=== PATIENT | male | born 1980 | race Caucasian/White ===

== ENCOUNTER 2016-08-24 15:36 | Emergency (ER) | payer BC ==
[~2016-08-24] VITALS: Ht 165.1 cm; Wt 65.5 kg
[~2016-08-24 15:36] MED LIST: AMO500 PO; IBUP-1542 PO; NO MEDS
[2016-08-24 15:40] VITALS: Ht 165.1 cm; Wt 65.5 kg
[2016-08-24] MEDS ORDERED: morphine 4 MG/ML VIAL IV STA (17:43)
[2016-08-24] MEDS ORDERED: ONDANSETRON 4 MG INJ IV STA (17:43)
--- NOTE | 2016-08-24 18:13 | RADRPT ---
PROCEDURE: Abdominal Ultrasound (right upper quadrant). CLINICAL INDICATION: Abdominal pain TECHNIQUE: Multiple real-time longitudinal and transverse images of the right upper quadrant of th e abdomen were acquired utilizing a curved array transducer. Images were reviewed on a high-resoluti on PACS workstation. COMPARISON: None FINDINGS: The liver demonstrates increased echogenicity consistent with fatty infiltration. The liver is mild ly enlarged. No focal masses are identified. There is no evidence of intra or extrahepatic ductal dilatation. The common bile duct measures 2.3 mm in diameter. No gallstones or gallbladder wall thi ckening is seen. The visualized portions of the pancreas are unremarkable with obscuration of the tail of the pancrea s. No free fluid is identified. There is no evidence of right hydronephrosis or renal calcification. The right kidney measures 10.2 cm in length. The visualized portions of the aorta and inferior vena cava are within normal limits. IMPRESSION: 1. Enlarged, fatty liver. 2. Otherwise unremarkable right upper quadrant ultrasound. RPTAT: KK .Cal Ramos MD, Date Time Electronically viewed and signed by .Cal Ramos MD, MD on 08/24/2016 18:13 .B/
[2016-08-24] MEDS ORDERED: SOD CHLORIDE 0.9% 1,000 ML IV ONE (18:16)
[2016-08-24 19:06] LABS: ADD SCAN DIFF NO
[2016-08-24 19:13] LABS: BASOPHIL # 0.1 10^3/ul (0.0-0.1); BASOPHILS % 0.5 % (0.0-2.0); EOSINOPHILS # 0.3 10^3/ul (0.0-0.5); EOSINOPHILS % 2.4 % (0.0-7.0); HEMATOCRIT 43.9 % (42.0-52.0); HEMOGLOBIN 15.3 g/dl (14.0-18.0); LYMPHOCYTES # 3.9 10^3/ul (0.8-2.9); LYMPHOCYTES % 32.8 % (15.0-51.0); MEAN CORPUSCULAR HEMOGLOBIN 30.6 pg (29.0-33.0); MEAN CORPUSCULAR HGB CONC 34.9 g/dl (32.0-37.0); MEAN CORPUSCULAR VOLUME 87.8 fl (82.0-101.0); MONOCYTE # 1.1 10^3/ul (0.3-0.9); NEUTROPHIL # 6.5 10^3/ul (1.6-7.5); PLATELET COUNT 294 10^3/UL (140-415); RED CELL DISTRIBUTION WIDTH 12.8 % (11.5-14.5); WHITE BLOOD COUNT 11.7 10^3/ul (4.8-10.8)
[2016-08-24 19:31] LABS: POTASSIUM 3.9 mmol/L (3.5-5.1)
[2016-08-24 19:33] LABS: ALBUMIN/GLOBULIN RATIO 1.25; BILIRUBIN,INDIRECT 0.1 mg/dl (0-1.1); BILIRUBIN,TOTAL 0.1 mg/dl (0.2-1.3); CALCIUM 8.9 mg/dl (8.4-10.2); CREATININE 0.73 mg/dl (0.61-1.24); TOTAL PROTEIN 7.2 g/dl (6.1-8.1)
[2016-08-24 19:43] LABS: ADD UMIC NO; URINE BILIRUBIN (Dip) NEGATIVE (NEGATIVE); URINE BLOOD (Dip) NEGATIVE (NEGATIVE); URINE COLOR LT. YELLOW (YELLOW); URINE GLUCOSE (Dip) NEGATIVE (NEGATIVE); URINE KETONES (Dip) NEGATIVE (NEGATIVE); URINE LEUKOCYTE ESTERASE (Dip) NEGATIVE (NEGATIVE); URINE NITRITE (Dip) NEGATIVE (NEGATIVE); URINE TOTAL PROTEIN (Dip) NEGATIVE (NEGATIVE); URINE UROBILINOGEN (Dip) 0.2 E.U./dL (0.1-1.0)
[2016-08-24] MEDS ORDERED: ACET1TAB40 PO (20:07)
[2016-08-24] MEDS ORDERED: BISM262O23 PO (20:07)
[2016-08-24] MEDS ORDERED: ONDA8TAB14 PO (20:07)
--- NOTE | 2016-08-24 20:09 | ERD ---
ER Documentation Chief Complaint Date/Time DATE: 08/24/16 TIME: 20:07 Chief Complaint ABDOMINAL PAIN,DIARRHEA X 4 DAYS HPI This 36-year-old male complains of vomiting diarrhea and epigastric pain for last 4 days. He may have some mild right upper quadrant abdominal pain. He has no measured fevers in the vomit is nonbilious nonbloody there is no blood or mucus in the diarrhea. ROS All systems reviewed and are negative except as per history of present illness. Medications Home Meds Active Scripts Bismuth Subsalicylate* (Pepto-Bismol*) 262 Mg/15 Ml Oral.susp, 15 ML PO Q3H Y for DIARRHEA for 5 Days, ML Prov:ONELIA WOLF MD 08/24/16 Ondansetron (Ondansetron Odt) 8 Mg Tab.rapdis, 8 MG PO Q6H Y for NAUSEA AND/OR VOMITING, #8 TAB Prov:ONELIA WOLF MD 08/24/16 Acetaminophen with Codeine (Acetaminophen-Cod #3 Tablet) 1 Each Tablet, 1 TAB PO Q6H Y for PAIN, #10 TAB Prov:ONELIA WOLF MD 08/24/16 Ibuprofen* (Motrin*) 600 Mg Tab, 600 MG PO Q6H Y for PAIN AND OR ELEVATED TEMP, #30 TAB Prov:HARRY FLORES NP 11/09/15 Amoxicillin* (Amoxicillin*) 500 Mg Cap, 500 MG PO TID for 10 Days, CAP Prov:HARRY FLORES NP 11/09/15 Reported Medications [No Meds] No Conflict Check 03/28/13 Allergies Allergies: Coded Allergies: No Known Drug Allergy (Verified Allergy, Mild, 08/24/16) PMhx/Soc History of Surgery: Yes (appendectomy) Anesthesia Reaction: No Hx Neurological Disorder: No Hx Respiratory Disorders: Yes (Asthma) Hx Cardiac Disorders: No Hx Psychiatric Problems: No Hx Miscellaneous Medical Probl: Yes (Dyslipidemia) Hx Alcohol Use: Yes (OCASSIONAL) Hx Substance Use: No Hx Tobacco Use: No Smoking Status: Never smoker Physical Exam Vitals Vital Signs Date Time Temp Pulse Resp B/P Pulse Ox O2 Delivery O2 Flow Rate FiO2 08/24/16 15:40 97.3 81 18 104/68 98 Physical Exam Const: [] Alert, no apparent distress. Head: Atraumatic Eyes: Normal Conjunctiva ENT: Normal External Ears, Nose and Mouth. Neck: Full range of motion..~ No meningismus. Resp: Clear to auscultation bilaterally Cardio: Regular rate and rhythm, no murmurs Abd: Soft, mild epigastric tenderness. No rebound. Mild right upper quadrant tenderness. No tenderness at McBurney's point. non distended. Normal bowel sounds Skin: No petechiae or rashes Back: No midline or flank tenderness Ext: No cyanosis, or edema Neur: Awake and alert Psych: Normal Mood and Affect Result Diagram: 08/24/16182908/24/161829 Results 24 hrs Laboratory Tests Test 08/24/16 18:30 08/24/16 19:02 White Blood Count 11.710^3/ul Red Blood Count 5.0010^6/ul Hemoglobin 15.3g/dl Hematocrit 43.9% Mean Corpuscular Volume 87.8fl Mean Corpuscular Hemoglobin 30.6pg Mean Corpuscular Hemoglobin Concent 34.9g/dl Red Cell Distribution Width 12.8% Platelet Count 91439^3/UL Mean Platelet Volume 11.0fl Neutrophils % 55.0% Lymphocytes % 32.8% Monocytes % 9.0% Eosinophils % 2.4% Basophils % 0.5% Nucleated Red Blood Cells % 0.0/100WBC Neutrophils # 6.510^3/ul Lymphocytes # 3.910^3/ul Monocytes # 1.110^3/ul Eosinophils # 0.310^3/ul Basophils # 0.110^3/ul Nucleated Red Blood Cells # 0.010^3/ul Sodium Level 147mmol/L Potassium Level 3.9mmol/L Chloride Level 108mmol/L Carbon Dioxide Level 26mmol/L Anion Gap 17 Blood Urea Nitrogen 14mg/dl Creatinine 0.73mg/dl Glucose Level 99mg/dl Calcium Level 8.9mg/dl Total Bilirubin 0.1mg/dl Direct Bilirubin 0.00mg/dl Indirect Bilirubin 0.1mg/dl Aspartate Amino Transf (AST/SGOT) 25IU/L Alanine Aminotransferase (ALT/SGPT) 34IU/L Alkaline Phosphatase 84IU/L Total Protein 7.2g/dl Albumin 4.0g/dl Globulin 3.20g/dl Albumin/Globulin Ratio 1.25 Lipase 82U/L Urine Color LT. YELLOW Urine Clarity CLEAR Urine pH 6.0 Urine Specific [place] 1.010 Urine Ketones NEGATIVE Urine Nitrite NEGATIVE Urine Bilirubin NEGATIVE Urine Urobilinogen 0.2 E.U./dL Urine Leukocyte Esterase NEGATIVE Urine Hemoglobin NEGATIVE Urine Glucose NEGATIVE% Urine Total Protein NEGATIVE Current Medications Medications (Trade) Dose Ordered Sig/Glenn Route PRN Reason Start Time Stop Time Status Last Admin Dose Admin Morphine Sulfate (morphine) 4 mg ONCE STAT IV 08/24/16 17:43 08/24/16 17:44 DC 08/24/16 18:30 Ondansetron HCl 4 mg 4 mg ONCE STAT IV 08/24/16 17:43 08/24/16 17:44 DC 08/24/16 18:30 Sodium Chloride (NS) 1,000 ml @ 0 mls/hr Q0M ONCE IV 08/24/16 18:16 08/24/16 18:17 DC 08/24/16 18:29 Procedures/MDM CBC shows a white blood cell 11.7. CMP shows no acute abnormalities. Lipase is normal. Urine is negative for infection, blood, glucose. Right upper quadrant ultrasound shows fatty liver but no additional acute abnormalities. Patient was given morphine 4 mg IV and Zofran form of grams IV and patient had improved pain and no rebound, only mild residual epigastric tenderness. Patient has signs and symptoms of vomiting diarrhea and epigastric pain, likely gastroenteritis. Signs or symptoms not consistent with hepatobiliary disease, appendicitis, pancreatitis, acute abdomen, obstruction. Treated with Tylenol No. 3, Zofran and Pepto-Bismol at home and further observation. The patient was stable with no new complaints during the ER course. Clinically, there is no current evidence to suggest meningitis, sepsis, acute abdomen, pneumonia, acute coronary syndrome, pulmonary embolism, or any other emergent condition appearing to require further evaluation or hospitalization. The patient should certainly return for any new or worsening symptoms per the aftercare instructions. They should otherwise follow-up with her primary care doctor for reevaluation this week. Departure Diagnosis: Primary Impression: Abdominal pain Abdominal location: epigastric Qualified Code: R10.13 - Epigastric pain Condition: Stable Patient Instructions: Abdominal Pain, Diarrhea, Viral (Child) (Adult), Vomiting (6Y-Adult) Additional Instructions: Examines normal hoy. Cheque otro vez con vazquez doctor primario en el proximo gates or regresa para mas o nueva simptomas. probablamente un virus que dura 2-4 gates. cheque otro ludmila el proximo lg para mas simptomas- vomito, dolor, moody, problemas con respirando, o con vazquez doctor primario. ONELIA WOLF MD Aug 24, 2016 20:09
[2016-08-24 20:36] VITALS: BP 113/69; PULSE 77; RESP 18; TEMP 98.3
== END 2016-08-24 20:37 | disposition home or self-care (01) ==
LOC: FTE 15:36
DX: R10.13 Epigastric pain (principal); R11.10 Vomiting, unspecified; J45.909 Unspecified asthma, uncomplicated
CPT/HCPCS: 76705; 80053; 81003; 83690; 85025; J2270; J2405; J7030; 36415; 96374; 96375

== ENCOUNTER 2018-09-17 16:55 | Emergency (ER) | payer SELFPAY ==
[~2018-09-17] VITALS: Ht 167.6 cm; Wt 63.3 kg
[~2018-09-17 16:55] MED LIST changes: +ACET1TAB40 PO; -AMO500 PO; +AMOX500C2 PO; +BISM262O23 PO; +ONDA8TAB14 PO
[2018-09-17 16:57] VITALS: Ht 167.6 cm; Wt 63.3 kg
[2018-09-17] MEDS ORDERED: SOD CHLORIDE 0.9% 500 ML IV STA (17:12)
[2018-09-17] MEDS ORDERED: METOCLOPRAMIDE 10 MG INJ IV STA (17:12)
[2018-09-17] MEDS ORDERED: DIPHENHYDRAMINE 50 MG INJ IV STA (17:12)
[2018-09-17] MEDS ORDERED: HYDROmorphONE 1 MG/ML SYG IV STA (17:12)
[2018-09-17] MEDS ORDERED: NICARDipine HCL 30 MG CAPSULE PO ONE (17:30)
[2018-09-17] MEDS ORDERED: CEFTRIAXONE 1 GM/50 ML (PMX) 50 ML IVPB STA (19:18)
--- NOTE | 2018-09-17 19:36 | ERD ---
ER Documentation Chief Complaint Chief Complaint right side head, throat. and right ear pain x yesterday HPI This is a 38-year-old male who complains of onset yesterday afternoon of a right-sided sore throat with right ear pain, with muffled hearing in the right ear with a fever. He said today he developed a headache located in the right occipital region that is pounding. He has photophobia, phonophobia, worse with position change. He does not have any neck pain or stiff neck. He said he thought he also had a fever today. Fevers are subjective. No cough no rash, no abdominal pain, no nausea vomiting or diarrhea. No dysuria. He says the pain is sharp in the right side of his neck when he swallows swallowing causes more pain in the right ear. He does not have a history of migraines ROS All systems reviewed and are negative except as per history of present illness. Medications Home Meds Discontinued Reported Medications [No Meds] No Conflict Check 03/28/13 Discontinued Scripts Bismuth Subsalicylate* (Pepto-Bismol*) 262 Mg/15 Ml Oral.susp, 15 ML PO Q3H PRN for DIARRHEA for 5 Days, ML Prov:ONELIA WOLF MD 08/24/16 Ondansetron (Ondansetron Odt) 8 Mg Tab.rapdis, 8 MG PO Q6H PRN for NAUSEA AND/OR VOMITING, #8 TAB Prov:ONELIA WOLF MD 08/24/16 Acetaminophen with Codeine (Acetaminophen-Cod #3 Tablet) 1 Each Tablet, 1 TAB PO Q6H PRN for PAIN, #10 TAB Prov:ONELIA WOLF MD 08/24/16 Ibuprofen* (Motrin*) 600 Mg Tab, 600 MG PO Q6H PRN for PAIN AND OR ELEVATED TEMP, #30 TAB Prov:HARRY FLORES NP 11/09/15 Amoxicillin* (Amoxicillin*) 500 Mg Cap, 500 MG PO TID for 10 Days, CAP Prov:HARRY FLORES NP 11/09/15 Allergies Allergies: Coded Allergies: No Known Drug Allergy (Verified Allergy, Mild, 09/17/18) PMhx/Soc History of Surgery: Yes (appendectomy) Anesthesia Reaction: No Hx Neurological Disorder: No Hx Respiratory Disorders: Yes (Asthma) Hx Cardiac Disorders: No Hx Psychiatric Problems: No Hx Miscellaneous Medical Probl: Yes (Dyslipidemia) Hx Alcohol Use: Yes (OCASSIONAL) Hx Substance Use: No Hx Tobacco Use: No Smoking Status: Never smoker FmHx Family History: No coronary disease Physical Exam Vitals Vital Signs Date Temp Pulse Resp B/P (MAP) Pulse Ox O2 O2 Flow FiO2 Time Delivery Rate 09/17/18 95 18 110/70 97 Room Air 17:50 (83) 09/17/18 98.9 105 18 161/130 95 16:57 (140) Physical Exam Const: Well-developed, well-nourished Head: Atraumatic, normocephalic Eyes: Normal Conjunctiva, PERRLA, EOMI, normal sclera, no nystagmus ENT: Normal External Ears, Nose and Mouth, moist mucus membranes, the right tympanic membrane has fluid white behind it, with moderate TM erythema. There is some mild/moderate right peritonsillar erythema, but no gross exudate is seen Neck: Full range of motion. No meningismus, no lymphadenopathy. Resp: Clear to auscultation bilaterally, no wheezing, rhonchi, rales Cardio: Regular rate and rhythm, no murmurs, S1 S2 present Abd: Soft, non tender x 4, non distended. Normal bowel sounds, no guarding or rebound, no pulsitile abdominal masses or bruits Skin: No petechiae or rashes, no ecchymosis , no maculopapular rash Back: No midline or flank tenderness Ext: No cyanosis, or edema, FROM x 4, normal inspection, neurovascularly intact x 4 Neur: Awake and alert, STR 5/5 x 4, sensation intact x 4, no focal findings, cerebellum intact Psych: Normal Mood and Affect Result Diagram: 09/17/18 1719 09/17/18 1719 Results 24 hrs Laboratory Tests Test 09/17/18 17:19 White Blood Count 17.4 10^3/ul Red Blood Count 4.80 10^6/ul Hemoglobin 14.4 g/dl Hematocrit 41.3 % Mean Corpuscular Volume 86.0 fl Mean Corpuscular Hemoglobin 30.0 pg Mean Corpuscular Hemoglobin Concent 34.9 g/dl Red Cell Distribution Width 12.3 % Platelet Count 253 10^3/UL Mean Platelet Volume 10.1 fl Immature Granulocytes % 0.300 % Neutrophils % 64.5 % Lymphocytes % 19.8 % Monocytes % 11.1 % Eosinophils % 3.3 % Basophils % 1.0 % Nucleated Red Blood Cells % 0.0 /100WBC Immature Granulocytes # 0.060 10^3/ul Neutrophils # 11.2 10^3/ul Lymphocytes # 3.4 10^3/ul Monocytes # 1.9 10^3/ul Eosinophils # 0.6 10^3/ul Basophils # 0.2 10^3/ul Nucleated Red Blood Cells # 0.0 10^3/ul Prothrombin Time 11.8 Sec Prothrombin Time Ratio 0.9 INR International Normalized Ratio 0.86 Activated Partial Thromboplast Time 27.1 Sec Sodium Level 140 mmol/L Potassium Level 3.9 mmol/L Chloride Level 108 mmol/L Carbon Dioxide Level 22 mmol/L Anion Gap 10 Blood Urea Nitrogen 12 mg/dl Creatinine 0.56 mg/dl Est Glomerular Filtrat Rate mL/min > 60 mL/min Glucose Level 93 mg/dl Calcium Level 9.7 mg/dl Current Medications Medications Dose Sig/Glenn Start Time Status Last (Trade) Ordered Route PRN Stop Time Admin Dose Reason Admin Sodium 500 ml @ Q1H STAT 09/17/18 DC 09/17/18 Chloride 500 mls/hr IV 17:12 17:26 09/17/18 18:11 10 mg ONCE STAT 09/17/18 DC 09/17/18 Metoclopramid IV 17:12 17:25 e HCl 09/17/18 17:13 (Reglan) 1 mg ONCE STAT 09/17/18 DC 09/17/18 Hydromorphone IV 17:12 17:24 HCl 09/17/18 17:13 (Dilaudid) 25 mg ONCE STAT 09/17/18 DC 09/17/18 Diphenhydrami IV 17:12 17:25 ne HCl 09/17/18 17:13 (Benadryl) Nicardipine 30 mg ONCE ONCE 09/17/18 DC HCl PO 17:30 (Cardene) 09/17/18 17:31 Ceftriaxone 50 ml @ ONCE STAT 09/17/18 DC Sodium 100 mls/hr IVPB 19:18 09/17/18 19:47 Procedures/MDM Patient: SLAVA HOANG : 1980 Age: 38 Sex: M MR #: [id number] DOS: 09/17/18 1712 Ordering MD: LUCINDA MYERS DO Location: E/R Room/Bed: PROCEDURE: CT Head without. CLINICAL INDICATION: Headache. TECHNIQUE: The study was performed utilizing a multi-slice, multidetector CT scanner. Direct spiral 1 mm axial sections were obtained through the head without the use of intravenous contrast material. 1 or more of the following dose reduction techniques were utilized: Automated exposure control, adjustment of the mA and/or kV according to patient's size, iterative reconstruction technique. Coronal and sagittal reformations were obtained. The images were reviewed on a PACS workstation. DICOM images are available. RADIATION DOSE: CTDIvol: 39.64 mGy mGy DLP: 634.23 mGy.cm mGy-cm COMPARISON: 05/19/2014 FINDINGS: There is no intracranial hemorrhage, extra-axial fluid collection, mass lesion, midline shift or hydrocephalus. The ventricles, sulci and cisterns are within normal limits. The white matter is unremarkable. The sandoval-white matter differentiation is preserved. The basal cisterns are patent. The midline structures are intact. The orbits, calvarium and extracranial soft tissues are normal in appearance. The visualized paranasal sinuses, mastoid air cells and middle ear cavities are normally aerated. IMPRESSION: 1. No acute intracranial abnormality. No intracranial hemorrhage, extra-axial fluid collection, mass lesion or hydrocephalous. RPTAT: HGAS .Forrest Ramos MD, MD Date Time Electronically viewed and signed by .Forrest Ramos MD, MD on 09/17/2018 19:11 .S/ CC: LUCINDA MYERS DO [id number] Patient has a negative head CT is elevated white blood count of 17.4. On reevaluation at 1950, he states his headache is gone. Patient does have erythema to the throat and otitis in the right ear. His headache sounds more migrainous than anything else. He is afebrile here. He also does not have a stiff neck and he looks well- appearing and my suspicion for meningitis is low. I did discuss with him and the family that if he is not doing better tomorrow to go to the nearest emergency room. I told him if he gets worse to go even sooner. Give him a dose of Rocephin 1 g IV here and discharged home with Augmentin. Departure Diagnosis: Primary Impression: Headache Headache type: unspecified Headache chronicity pattern: acute headache Intractability: not intractable Qualified Codes: R51 - Headache Additional Impressions: Otitis media Otitis media type: suppurative Chronicity: acute Laterality: right Recurrence: not specified as recurrent Spontaneous tympanic membrane rupture: without spontaneous rupture Qualified Codes: H66.001 - Acute suppurative otitis media without spontaneous rupture of ear drum, right ear Pharyngitis Pharyngitis/tonsillitis etiology: unspecified etiology Qualified Codes: J02.9 - Acute pharyngitis, unspecified Condition: Stable LUCINDA MYERS DO Sep 17, 2018 19:36
[2018-09-17] MEDS ORDERED: SOD CHLORIDE 0.9% 1,000 ML IV STA (19:57)
[2018-09-17] MEDS ORDERED: AMOX1TAB10 PO (19:59)
[2018-09-17] MEDS ORDERED: TRAM50TA2 PO (19:59)
[2018-09-17 21:04] VITALS: BP 96/72; PULSE 94; RESP 18
== END 2018-09-17 21:16 | disposition home or self-care (01) ==
LOC: E/R 16:55
DX: J02.9 Acute pharyngitis, unspecified (principal); H66.001 Acute suppurative otitis media without spontaneous rupture of ear drum, right ear; J45.909 Unspecified asthma, uncomplicated
CPT/HCPCS: 36415; 70450; 80048; 85025; 85610; 85730; 96374; 96375; 99285; J0696; J1170; J1200; J2765; J7030; J7040